=== PATIENT | female | born 1930 | race Caucasian/White ===

== ENCOUNTER 2019-07-01 09:20 | Emergency (ER) | payer OTHER, MEDICAID ==
[~2019-07-01] VITALS: Ht 147.3 cm; Wt 54.4 kg
[2019-07-01 09:20] VITALS: BP 141/79
--- NOTE | 2019-07-01 09:26 | NUR ---
x-ray ta the bedside.
--- NOTE | 2019-07-01 09:30 | NUR ---
[place] FROM [facility] W C/O R HAND PAIN. PT UNAWARE OF HOW OR WHEN INJURY OCCURED. PT HAS RT WRIST SWELLING. CAN MOVE HER HAND AND FINGER. CMS PRESENT. PER EMS CREW, PT WAS C/O PAIN AT HER HAND IN HER ROOM AT [facility], UNABLE TO RECALL HOW IT HAPPENED. PT FAMILY WAMTED THE PT TO BE SEEN AT ER. WILL CONTINUE TO MONITOR PT. HX: DEMENTIA, HTN RX: MEMANTINE, SEROQUEL, AMLODIPINE, METOPROLOL, VALSARTAN
--- NOTE | 2019-07-01 09:52 | NUR ---
SIMRAN ROBINS ASSESSING PT AT THE BEDSIDE.
[2019-07-01] MEDS ORDERED: ACETAMINOPHEN 325 MG TAB PO ONE (10:10)
--- NOTE | 2019-07-01 10:49 | NUR ---
CHECKED ON PT. RESTING COMFORTABLY IN HER BED, SPLINT PUT ON PT RT HAND. STATES PAIN IS REDUCED AT THIS TIME AFTER MEDICATION.
--- NOTE | 2019-07-01 11:35 | NUR ---
11:35-----CALLED [facility]RIFFIN FOR PATIENT TIE [facility]ER. SPOKE WITH LUIS.
[2019-07-01 11:53] VITALS: BP 135/75
--- NOTE | 2019-07-01 11:53 | NUR ---
Patient discharged with v/s stable. Written and verbal after care instructions given and explained. Patient alert, oriented and verbalized understanding of instructions. Ambulatory with by caregiver. All questions addressed prior to discharge. ID band removed. Patient advised to follow up with PMD. Opportunity to ask questions provided and answered.
== END 2019-07-01 11:53 | disposition home or self-care (01) ==
LOC: MED 09:20
DX: S63.501A Unspecified sprain of right wrist, initial encounter (principal); X58.XXXA Exposure to other specified factors, initial encounter; Y93.89 Activity, other specified; Y92.89 Other specified places as the place of occurrence of the external cause; Y99.8 Other external cause status; E11.9 Type 2 diabetes mellitus without complications; F03.90 Unspecified dementia, unspecified severity, without behavioral disturbance, psychotic disturbance, mood disturbance, and anxiety; I10 Essential (primary) hypertension
CPT/HCPCS: 29125; 73130; 99283; Q0092